=== PATIENT | male | born 1985 | race Asian ===

== ENCOUNTER 2020-11-17 14:00 | Emergency (ER) | payer SELFPAY ==
[2020-11-17 14:21] VITALS: BP 117/79
--- NOTE | 2020-11-17 14:50 | Emergency Department Report ---
Chief Complaint: Medical Clearance Stated Complaint: STD - HPI History of Present Illness: 35-year-old -[place] male patient presents with complaints of possible STD exposure. Patient states his girlfriend was diagnosed with trichomonas. He denies any dysuria/hematuria, penile discharge, penile lesions/swelling, testicular lesions/swelling, abdominal pain, joint pain/swelling, or fever/chills/sweats. Patient is well-appearing, his vitals are normal, he is stable for outpatient treatment for STIs. Patient provided with community clinic list and informed to follow-up within the next 24 hours for further testing and treatment. Patient also informed to refrain from any sexual intercourse until he is given further instructions. Strict return precautions discussed in detail with patient who verbalizes understanding. - Exam Vital Signs: Vital Signs 11/17/20 14:16 Temperature 98.9 F Pulse Rate 82 Respiratory 18 Rate Blood Pressure 117/79 O2 Sat by Pulse 98 Oximetry MSE screening note: Focused history and physical exam performed. Due to findings the following was ordered: ED Disposition for MSE Condition: Stable ED Physical Exam - General Limitations: No Limitations General appearance: alert, in no apparent distress - Head Head exam: Present: atraumatic, normocephalic - Eye Eye exam: Present: normal appearance. Absent: scleral icterus - Respiratory Respiratory exam: Absent: respiratory distress - Cardiovascular Cardiovascular Exam: Present: regular rate - Extremities Exam Extremities exam: Present: full ROM. Absent: joint swelling - Back Exam Back exam: Present: full ROM - Neurological Exam Neurological exam: Present: alert, oriented X3, normal gait - Psychiatric Psychiatric exam: Present: normal affect, normal mood - Skin Skin exam: Present: warm, dry, intact, normal color. Absent: rash ED Review of Systems ROS: Stated complaint: STD Other details as noted in HPI Constitutional: denies: fever, malaise ENT: denies: throat pain Respiratory: denies: shortness of breath Cardiovascular: denies: chest pain Gastrointestinal: denies: abdominal pain Genitourinary: denies: urgency, dysuria, frequency, hematuria, discharge, testicular pain, testicular mass Musculoskeletal: denies: joint swelling, arthralgia Skin: denies: rash, lesions, change in color
== END 2020-11-17 17:37 | disposition left against medical advice (07) ==
LOC: ED 14:00
DX: Z20.2 Contact with and (suspected) exposure to infections with a predominantly sexual mode of transmission (principal); Z53.21 Procedure and treatment not carried out due to patient leaving prior to being seen by health care provider